=== PATIENT | female | born 1985 | race Hispanic/Latino ===

== ENCOUNTER 2017-07-27 22:28 | Emergency (ER) | payer MEDICAID, OTHER ==
--- NOTE | 2017-07-27 23:31 | RAD ---
RIGHT KNEE FOUR VIEWS 07/27/17 HISTORY: Right knee pain. FINDINGS: Knee is held in persistent flexion, limiting evaluation. No acute fracture, dislocation or fluid dist ention of the joint capsule are apparent. IMPRESSION: No acute osseous abnormalities are demonstrated. POS: [facility]
== END 2017-07-28 00:48 | disposition home or self-care (01) ==
LOC: ERS 22:28
DX: M25.561 Pain in right knee (principal); F17.210 Nicotine dependence, cigarettes, uncomplicated; Z79.899 Other long term (current) drug therapy

== ENCOUNTER 2018-02-18 00:03 | Emergency (ER) | payer MEDICAID ==
--- NOTE | 2018-02-18 09:39 | RAD ---
LEFT ANKLE 3 VIEWS: HISTORY: Left ankle injury. FINDINGS: Ankle mortise is intact. Mild soft tissue swelling. No acute fracture, dislocation, or aggressive o sseous erosions. Cortical remodeling in the 5th metatarsal is suspected and may be related to an old healed injury. IMPRESSION: No acute osseous abnormalities are demonstrated. POS: [facility]
== END 2018-02-18 02:04 | disposition home or self-care (01) ==
LOC: ERS 00:03
DX: S96.912A Strain of unspecified muscle and tendon at ankle and foot level, left foot, initial encounter (principal); S66.911A Strain of unspecified muscle, fascia and tendon at wrist and hand level, right hand, initial encounter; S66.912A Strain of unspecified muscle, fascia and tendon at wrist and hand level, left hand, initial encounter; S80.11XA Contusion of right lower leg, initial encounter; W01.0XXA Fall on same level from slipping, tripping and stumbling without subsequent striking against object, initial encounter

== ENCOUNTER 2019-02-17 05:17 | Emergency (ER) | payer OTHER ==
[2019-02-17] MEDS ORDERED: Ibuprofen 800 MG TAB ONE (05:30)
== END 2019-02-17 05:39 | disposition home or self-care (01) ==
LOC: ERS 05:17
DX: H65.91 Unspecified nonsuppurative otitis media, right ear (principal); F43.10 Post-traumatic stress disorder, unspecified; F32.9 Major depressive disorder, single episode, unspecified
CPT/HCPCS: 99283

== ENCOUNTER 2020-11-19 00:30 | Emergency (ER) | payer OTHER, SELFPAY ==
[2020-11-19] MEDS ORDERED: Ketorolac Tromethamine 30 MG/ML VIAL ONE (02:10)
[2020-11-19] MEDS ORDERED: Diazepam 5 MG TAB ONE (02:10)
[2020-11-19] MEDS ORDERED: Iopamidol-370 76% 500 ML 1 ML ONE (12:00)
== END 2020-11-19 03:21 | disposition home or self-care (01) ==
LOC: ERS 00:30
DX: M43.6 Torticollis (principal); R51.9 Headache, unspecified; F17.210 Nicotine dependence, cigarettes, uncomplicated
CPT/HCPCS: 70496; 70498; 96374; J1885; Q9967

== ENCOUNTER 2021-07-22 09:39 | Emergency (ER) | payer SELFPAY | END 2021-07-22 10:25 | disposition home or self-care (01) | LOC: ERS 09:39 | DX: M25.512 Pain in left shoulder (principal); F17.210 Nicotine dependence, cigarettes, uncomplicated ==

== ENCOUNTER 2021-07-24 14:46 | Emergency (ER) | payer SELFPAY ==
[2021-07-24 15:30] LABS: #Basophils 0.1 thou/uL (0.0-0.2); #Eosinphils 0.1 thou/uL (0.0-0.7); #Lymphocytes 2.1 thou/uL (1.20-3.40); #Neutrophils 8.8 thou/uL (1.40-6.50); %Basophils 0.6 % (0.0-1.0); %Eosinophils 0.9 % (0.0-10.0); %Lymphocytes 17.4 % (21.0-51.0); %Monocytes 7.9 % (0.0-10.0); %Neutrophils 73.2 % (42.0-75.0); Hemoglobin 12.7 g/dL (12.0-16.0); Mean Corpuscular HGB CONC 34.7 g/dL (32.0-36.0); Mean Corpuscular Hemoglobin 32.5 pg (27.0-31.0); Mean Corpuscular Volume 93.5 fL (78.0-98.0); Mean Platelet Volume 6.8 fL (7.4-10.4); Platelet Count 337 thou/uL (130-400); RBC Distribution Width 12.4 % (11.5-14.5)
[2021-07-24] MEDS ORDERED: Acetaminophen 500 MG TAB ONE (15:30)
[2021-07-24 15:51] LABS: ALT (SGPT) 33 U/L (8-55); AST (SGOT) 35 U/L (5-34); Albumin 4.1 g/dL (3.5-5.0); Alkaline Phosphatase 121 U/L (40-110); Anion Gap 13 mmol/L (10-20); BUN (Urea Nitrogen) 4 mg/dL (7.0-18.7); Bilirubin, Total 0.4 mg/dL (0.2-1.2); Calc. Creatinine Clearance 0 mL/min (70-130); Calcium 9.2 mg/dL (7.8-10.44); Carbon Dioxide 25 mmol/L (22-29); Chloride 94 mmol/L (98-107); Globulin 3.1 g/dL (2.4-3.5); Glucose 104 mg/dL (70-105); Magnesium 1.9 mg/dL (1.6-2.6); Potassium 3.7 mmol/L (3.5-5.1); Protein, Total 7.2 g/dL (6.0-8.3); Sodium 128 mmol/L (136-145)
== END 2021-07-24 17:11 | disposition home or self-care (01) ==
LOC: ERS 14:46
DX: E87.1 Hypo-osmolality and hyponatremia (principal); R06.00 Dyspnea, unspecified; R09.82 Postnasal drip; F17.210 Nicotine dependence, cigarettes, uncomplicated
CPT/HCPCS: 36415; 71045; 80053; 83735; 83880; 84484; 85025; 93005

== ENCOUNTER 2022-06-28 12:27 | Emergency (ER) | payer OTHER, SELFPAY ==
[2022-06-28] MEDS ORDERED: Ketorolac Tromethamine 30 MG/ML VIAL ONE (16:24)
[2022-06-28] MEDS ORDERED: HYDROcodone/Acetaminophen 7.5/325 mg Tablet ONE (17:21)
== END 2022-06-28 17:43 | disposition home or self-care (01) ==
LOC: ERS 12:27
DX: S92.352A Displaced fracture of fifth metatarsal bone, left foot, initial encounter for closed fracture (principal); E66.9 Obesity, unspecified; F17.210 Nicotine dependence, cigarettes, uncomplicated; Z79.899 Other long term (current) drug therapy; W01.0XXA Fall on same level from slipping, tripping and stumbling without subsequent striking against object, initial encounter
CPT/HCPCS: 29515; 96372; J1885